=== PATIENT | male | born 1945 | race Caucasian/White ===

== ENCOUNTER 2016-11-01 14:55 | Emergency (ER) | payer MEDICARE | END 2016-11-01 18:17 | disposition home or self-care (01) | LOC: D.ER 14:55 | DX: S92.001A Unspecified fracture of right calcaneus, initial encounter for closed fracture (principal); X58.XXXA Exposure to other specified factors, initial encounter; Y93.9 Activity, unspecified; Y92.019 Unspecified place in single-family (private) house as the place of occurrence of the external cause; I10 Essential (primary) hypertension; K21.9 Gastro-esophageal reflux disease without esophagitis ==

== ENCOUNTER → 2016-11-05 13:30 | Outpatient (CLI) | payer MEDICARE | END | disposition home or self-care (01) | LOC: D.CT 13:30 | DX: S92.012A Displaced fracture of body of left calcaneus, initial encounter for closed fracture (principal); X58.XXXA Exposure to other specified factors, initial encounter; Y93.89 Activity, other specified; Y92.89 Other specified places as the place of occurrence of the external cause ==

== ENCOUNTER 2019-03-26 20:48 | Inpatient (IN) | payer MEDICARE ==
[~2019-03-26] VITALS: Ht 172.7 cm; Wt 89.5 kg
--- NOTE | ~2019-03-26 | DS ---
PATIENT:YOVANNY HUNTER :45 MEDICAL RECORD: [id number] DISCHARGE SUMMARY ADMISSION DATE: 03/27/19 DISCHARGE DATE: 03/28/19 DATE OF DISCHARGE: 03/28/2019 DIAGNOSES: 1. Ventricular tachycardia. 2. Unstable angina. 3. Coronary artery disease. 4. Percutaneous transluminal coronary angioplasty left main and left circumflex this admission. 5. Hypertension. HOSPITAL COURSE: This is a gentleman who is followed by the [place], who presents with chest pain and ventricular tachycardia, underwent cardiac catheterization revealing significant stenosis of a non-grafted circumflex and left main, underwent PTCA stent of both territories, was placed on Cordarone, had no further episodes of ventricular tachycardia or any other dysrhythmia. Will be discharged home with the addition of Cordarone and Plavix to his medical regimen. Follow up with [facility]. TRANSINT:[id number] Voice Confirmation ID: [id number] DOCUMENT ID: [id number] ARELIS WALTERS MD CC: [id number] DICTATION DATE: 03/28/19 1101 SALES AND MARKETING MANAGER: 03/29/19 0103 DIS IN 03/28/19 [facility] [address] [place] [address]
--- NOTE | ~2019-03-26 | HEMODYNAMI ---
PATIENT:YOVANNY HUNTER MEDICAL RECORD: [id number] : 45 LOCATION:[facility] D.2120 ADMISSION DATE: 03/27/19 Generatedon:03/27/201910:35 Patient name: YOVANNY HUNTER Patient #: [id number] SSN: D OB: 1945 Date of study: 03/27/2019 Page: Of Hemodynamic Procedure Report Patient Data Patient Demographics Procedure consent was obtained First Name: YOVANNY Gender: Male Last Name: ELSA : 1945 Middle Initial: CODY Age: 73 year(s) Patient #: [id number] Race: Unknown Additional ID: [id number] Contact details Address: [address] [place] [address] State: [place] City: [place] Zip code: [address] Past Medical History History of disease Date Diagnosis Comments CAD Allergies: No known allergies Admission Admission Data Admission Date: 03/27/2019 Admission Time: 9:50 Room #: D.2120 Height (in.): 67.72 BSA: 1.84 (m2) Height (cm.): 172 BMI: 24 (kg/m2) Weight (lbs.): 156.53 Weight (kg.): 71 Lab Results Lab Result Date: 03/27/2019 Lab Result Time: 0:00 Biochemistry Name Units Result Min Max BUN mg/dl 11 --(-*--)-- 7 18 Creatinine mg/dl 1.1 --(--*-)-- 0.6 1.3 eGFR ml/min 70.19312 *-(----)-- 90 120 NONAFRICAN CBC Name Units Result Min Max Hematocrit % 43.1 --(*---)-- 42 54 Hemoglobin g/dl 14.8 --(-*--)-- 13.5 17.5 Procedure Procedure Types Cath Procedure Diagnostic Procedure C LHC w/Coronaries w/Grafts FFR/IVUS FFR Initial Sedation Charges Moderate Sedation up to 30 minutes PCI Procedure Coronary Stent Coronary Stent Initial x2 Hemochron ACT Test Procedure Description Procedure Date Procedure Date: 03/27/2019 Procedure Start Time: 10:00 Procedure End Time: 10:31 Procedure Staff Name Function Vega Coe MD Performing Physician Ailyn Isbell RT Monitor Татьяна Tobias RT Scrub Heather Gagnon RN Nurse Indication Elevated troponin Procedure Data Cath Procedure Fluoroscopy Diagnostic fluoroscopy Total fluoroscopy Time: 8.7 time: 8.7 min min Diagnostic fluoroscopy Total fluoroscopy dose: dose: 1189 mGy 1189 mGy Contrast Material Contrast Material Type Amount (ml) Isovue 300 145 Entry Location Entry Primary Successful Side Size Upsize Upsize Entry Closure Succes sful Closure Location (Fr) 1 (Fr) 2 (Fr) Remarks Device Remarks Femoral Right 5 Fr 6 Fr Exoseal artery Short Estimated blood loss: 10 ml Diagnostic catheters Device Type Used For End Catheter Placement MULTIPACK Pigtail 5 Fr Procedure catheter MULTIPACK JL 4.0 5Fr Procedure catheter DIAGNOSTIC JL 5 5Fr Procedure catheter ([id number]) MULTIPACK 3DRC 5Fr Procedure catheter DIAGNOSTIC AR2 MOD 5 Fr Procedure catheter ([id number]) Procedure Complications No complications Procedure Medications Medication Administration Route Dosage Oxygen 8 l/min Lidocaine 2% added to field 20 Heparin Flush Bag added to field 2 bags (1000units/500ml NS) 0.9% NaCl I.V. 100 ml/hr Versed I.V. 2 mg Fentanyl I.V. 100 mcg Versed I.V. 1 mg Fentanyl I.V. 50 mcg Heparin Bolus I.V. 4000 units Integrilin (Bolus I.V. 6.2 ml 2mg/ml) Hemodynamics Rest BSA: 1.84 (m2) HGB: 14.8 (g/dl) O2 Consumption: Estimated: 209.97 (ml/min) O2 Co nsumption indexed: Estimated:114.11 (ml/min/m) Heart Rate: 67 (bpm) Snapshots Pre Cath Intra NCS Post Cath Vital Signs Time Heart Resp SPO2 etCO2 NIBP (mmHg) Rhythm Pain Sedation Rate (ipm) (%) (mmHg) Status Level (bpm) 9:40:30 65 16 98 0 165/96(142) NSR 0 (11) 10(A) , No pain 9:44:48 65 15 97 0 153/90(130) NSR 0 (11) 10(A) , No pain 9:49:04 66 16 97 0 152/91(126) NSR 0 (11) 10(A) , No pain 9:53:18 67 14 96 0 145/89(122) NSR 0 (11) 10(A) , No pain 9:57:32 66 23 96 0 150/96(126) NSR 0 (11) 10(A) , No pain 10:01:48 68 15 97 0 148/87(125) NSR 0 (11) 10(A) , No pain 10:06:04 75 30 96 0 149/101(114) NSR 0 (11) 9(A) , No pain 10:10:21 74 13 96 0 152/99(125) NSR 0 (11) 9(A) , No pain 10:14:35 77 21 96 0 145/94(121) NSR 0 (11) 9(A) , No pain 10:18:48 80 17 97 0 137/90(110) NSR 0 (11) 9(A) , No pain 10:23:00 75 15 96 0 142/87(113) NSR 0 (11) 9(A) , No pain 10:27:14 71 15 94 0 146/87(118) NSR 0 (11) 9(A) , No pain 10:31:28 70 17 98 0 140/86(116) NSR 0 (11) 10(A) , No pain Medications Time Medication Route Dose Verified Delivered Reason Notes Effectiveness by by 9:49:54 Oxygen simple 8 Vega Buffie used for pt wea rs mask. l/min Carolin Gagnon RN procedure cpap at night 9:50:30 Lidocaine 2% added 20ml Vega Vega for local pt wea rs to vial Carolin Coe MD anesthetic cpap at field night 9:50:37 Heparin Flush added 2 Vega Vega used for pt wea rs Bag to bags Carolin Coe MD procedure cpap at (1000units/500ml field night NS) 9:50:47 0.9% NaCl I.V. 100 Vegaron Winnie Per physician pt wea rs ml/hr Carolin Gagnon RN cpap at night 10:00:33 Versed I.V. 2 mg Vega Romero for sedation Carolin Gagnon RN 10:00:38 Fentanyl I.V. 100 Vega Buffie for sedation mcg Carolin Gagnon RN 10:11:39 Versed I.V. 1 mg Vega Romero for sedation Carolin Gagnon RN 10:11:43 Fentanyl I.V. 50 Vega Winnie for sedation mcg Carolin Gagnon RN 10:16:45 Heparin Bolus I.V. 4000 Vega Romero for verifi ed units Carolin Gagnon RN anticoagulation with dr coe 10:20:03 Integrilin I.V. 6.2 Vega Buffie Per physician wasted (Bolus 2mg/ml) ml Carolin Gagnon RN 3.8 ml of vial Procedure Log Time Note 8:59:33 Informed consent obtained and on chart 9:01:17 Procedure Status Urgent Heart Cath (IP). 9:01:18 Time tracking: Regular hours (M-F 7:00 - 5:00) 9:01:21 Plan of Care:Hemodynamics will remain stable., Cardiac rhythm will remain stable., Comfort level will be maintained., Respiratory function will remain adequate., Patient/ family verbilizes understanding of procedure., Procedure tolerated without complication., Recovers from procedure without complications.. 9:03:14 Patient allergic to No known allergies 9:03:44 Lab Result : BUN 11 mg/dl 9:03:44 Lab Result : Creatinine 1.1 mg/dl 9:03:44 Lab Result : eGFR NONAFRICAN 70.30618 ml/min 9:03:44 Lab Result : Hemoglobin 14.8 g/dl 9:03:44 Lab Result : Hematocrit 43.1 % 9:06:27 Patient Weight : 156.53 lbs 9:06:29 Patient Height : 67.72 inches 9:10:34 Indication : Elevated troponin 9:10:48 Stress Test: no; N/A NSTEMI 9:10:54 Risk of Mortality: .3 9:10:57 Risk of blood transfusion: .8 9:11:01 Risk of CANDY: 2.4 9:20:59 H&P Date Dictated: 03/27/2019 Within 30 days and on chart.. 9:22:25 Ailyn Isbell RT(R) sent for patient. Start room use. 9:29:55 Patient received from Med II to CCL 1 Alert and oriented. Tansferred to table in Supine position. 9:29:57 Warm blankets applied, and elizabeth hugger turned on for patient comfort. 9:29:58 Correct patient and procedure confirmed by team. 9:29:58 ECG and BP/O2 sat monitors applied to patient. 9:39:18 Vital chart was started 9:39:19 Baseline sample Acquired. 9:39:21 Rhythm: sinus rhythm 9:39:22 Full Disclosure recording started 9:39:23 Pre-procedure instructions explained to patient. 9:39:23 Pre-op teaching completed and patient verbalized understanding. 9:39:24 Family unavailable. 9:39:25 Patient NPO since Midnight. 9:39:27 Is the patient allergic to Iodine/contrast media? No. 9:39:28 Is patient on blood thinner?Yes 9:39:48 GIVEN 600MG OF PLAVIX 9:39:49 Patient diabetic? No. 9:39:53 Previous problem with sedation/anesthesia? No ? 9:39:54 Snore? Yes 9:39:56 Sleep apnea? Yes 9:39:57 Deviated septum? No 9:39:59 Opens mouth fully? Yes 9:40:01 Sticks out tongue? Yes 9:40:02 Airway obstruction? No ? 9:40:05 Dentures? No ? 9:40:08 Pre procedure: right dorsailis pedis pulse 1+ Palpable, but thready & weak; easily obliterated 9:40:13 Patient pain scale 0/10 ?. 9:40:18 IV patent on arrival in right antecubital with 0.9% NaCl at KVO. 9:40:21 Lab results completed and on chart. 9:40:24 Right groin area was prepped with chlora-prep and draped in sterile fashion 9:40:26 Alarms reviewed by R. N. 9:40:26 Sharps counted by scrub and verified by R.N. 9:42:16 Use device set Femoral Dx 9:42:17 ACIST Syringe (69750) opened to sterile field. 9:42:17 Bag Decanter () opened to sterile field. 9:42:18 ACIST Hand Control (41869) opened to sterile field. 9:42:19 ACIST Manifold (24829) opened to sterile field. 9:42:21 Tegaderm 4 x 4 (1626W) opened to sterile field. 9:42:22 Medline Cath Pack ([id number]) opened to sterile field. 9:42:23 DIAGNOSTIC Multipack 5Fr catheter set ([id number]) opened to sterile field. 9:42:24 SHEATH 5FR [place] (TEB149) opened to sterile field. 9:42:24 EMERALD Guide Wire (161-122) opened to sterile field. 9:49:54 Oxygen 8 l/min simple mask. was administered by Heather Gagnon RN; used for procedure; pt wears cpap at night Verbal order read back and verified. 9:50:30 Lidocaine 2% 20ml vial added to field was administered by Vega Coe MD; for local anesthetic; pt wears cpap at night Verbal order read back and verified. 9:50:37 Heparin Flush Bag (1000units/500ml NS) 2 bags added to field was administered by Vega Coe MD; used for procedure; pt wears cpap at night Verbal order read back and verified. 9:50:47 0.9% NaCl 100 ml/hr I.V. was administered by Heather Gagnon RN; Per physician; pt wears cpap at night Verbal order read back and verified. 9:54:13 Zero performed for pressure channel P1 9:58:09 --------ALL STOP TIME OUT------ 9:58:09 Final Timeout: patient, procedure, and site verified with staff and physician. All members of the team are in agreement. 9:58:11 Right groin site verified by team. 9:58:13 Fire Safety Assessment: A--An alcohol-based skin anteseptic being used preoperatively., C--Open oxygen or nitrous oxide is being used., D--An ESU, laser, or fiber-optic light is being used. 9:58:16 Physical assessment completed. ASA score P 2 - A patient with mild systemic disease as per Vega Coe MD. 9:58:20 2) 60-89 Mildly reduced kidney function, and other findings (as for stage 1) point to kidney disease. 9:58:23 Maximum allowable contrast dose (3.7 X eGFR X 0.75)194 ml. 9:58:26 Sedation plan: IV Moderate Sedation Medication:Versed, Fentanyl 10:00:33 Versed 2 mg I.V. was administered by Heather Gagnon RN; for sedation; Verbal order read back and verified. 10:00:38 Fentanyl 100 mcg I.V. was administered by Heather Gagnon RN; for sedation; Verbal order read back and verified. 10:00:41 Procedure started. 10:00:46 Local anesthetic to right femoral artery with Lidocaine 2% by Vega Coe MD.INITIAL ACCESS ONLY 10:01:36 A 5 Fr sheath was inserted into the Right Femoral artery 10:01:57 A MULTIPACK Pigtail 5 Fr catheter was advanced over the wire and used for Procedure. 10:02:11 LV gram done using IZQUIERDO 10:02:13 Injector settings: Ml/sec: 10, Volume: 20, 10:02:19 EF : 30 % 10:02:34 Catheter removed. 10:02:46 A MULTIPACK JL 4.0 5Fr catheter was advanced over the wire and used for Procedure. 10:03:30 Catheter removed. 10:03:35 GLIDE WIRE ANGLE 260cm (RA4830) opened to sterile field. 10:03:37 UNABLE TO ENGAGE LCA 10:03:51 UPGRADING TO 6FR SHEATH. FOR A GUIDE 10:03:57 SHEATH 6FR [place]ner (RBV277) opened to sterile field. 10:04:06 Sheath upsized to a 6 Fr Short. 10:04:18 GUIDE 6FR XBLAD 4.0 catheter ([id number]) opened to sterile field. 10:05:09 6 Fr XBLAD 4 guide catheter was inserted over the wire 10:05:35 Guide Catheter removed. unable to cannulate vessel. 10:05:48 A DIAGNOSTIC JL 5 5Fr catheter (405886R) was advanced over the wire and used for Procedure. 10:07:18 LCA angiography performed. 10:07:20 Catheter removed. 10:07:48 A MULTIPACK 3DRC 5Fr catheter was advanced over the wire and used for Procedure. 10:09:04 ASHLEY to LAD angiography performed. 10:11:33 RCA angiography performed. 10:11:39 Versed 1 mg I.V. was administered by Heather Gagnon RN; for sedation; Verbal order read back and verified. 10:11:43 Fentanyl 50 mcg I.V. was administered by Heather Gagnon RN; for sedation; Verbal order read back and verified. 10:11:46 Catheter removed. 10:11:52 A DIAGNOSTIC AR2 MOD 5 Fr catheter (064104N) was advanced over the wire and used for Procedure. 10:12:56 SVG to RCA angiography performed. 10:12:57 Catheter exchanged over wire. 10:13:00 Proceeding to intervention. 10:13:13 GUIDE 6FR JL 5.0 catheter (PU2XW64) opened to sterile field. 10:13:43 INFLATOR Merit BasixCompak (PE3134) opened to sterile field. 10:13:43 CHOICE PT Extra Support 182cm wire ([id number]) opened to sterile field. 10:13:44 [place] Verrata Plus pressure wire (64559Y) opened to sterile field. 10:14:48 6 Fr JL 5 guide catheter was inserted over the wire 10:15:51 FFR/IFR wire advanced. 10:16:45 Heparin Bolus 4000 units I.V. was administered by Heather Gagnon RN; for anticoagulation; verified with dr coe Verbal order read back and verified. 10:17:27 Wire advanced across lesion. 10:17:53 LMCA lesion measured at .87 with IFR 10:18:34 Pre PCI Site: [place] LMCA has 70% stenosis. 10:18:43 Pre PCI Site: [place] mCirc has 90% stenosis. 10:18:59 IFR WIRE REMOVED 10:19:05 CHOICE ES 182 wire advanced. 10:19:33 CHOICE ES 182 ADVNACED ACROSS THE CIRC 10:20:03 Integrilin (Bolus 2mg/ml) 6.2 ml I.V. was administered by Heather Gagnon RN; Per physician; wasted 3.8 ml of vial Verbal order read back and verified. 10:20:36 Inflate balloon Inflation number: 1 A EUPHORA 3.5 x 15 Balloon ([id number]) was prepped and advanced across the Prox CX , then inflated to 13 DAI for 0:00 (min:sec) . 10:21:12 Balloon removed over the wire. 10:22:27 Place stent Inflation Number: 2 A KAT RX 3.0 x 08 stent ([id number]) was prepped and advanced across the Prox CX . The stent was deployed at 19 DAI for 0:00 (min:sec) . 10:22:32 Stent catheter was removed intact over wire. 10:23:56 Place stent Inflation Number: 1 A KAT RX 3.5 x 12 stent ([id number]) was prepped and advanced across the LMCA . The stent was deployed at 17 DAI for 0:00 (min:sec) . 10:24:13 Stent catheter was removed intact over wire. 10:24:14 Wire removed. 10:24:15 Guide catheter removed. 10:24:48 EXOSEAL 6Fr (EX600) opened to sterile field. 10:25:07 Sheath removed intact; hemostasis achieved with Exoseal to the Right Femoral artery. 10::44 Procedure ended.(Physican Out) 10:27:22 Fluoroscopy time 08.70 minutes. 10::25 Fluoroscopy dose: 1189 mGy 10::25 Flurop Dose total: 1189 10::43 Dose Area Product 09489 mGy/cm. 10::08 Contrast amount:Isovue 300 145ml. 10:28:12 Maximum allowable dose exceeded? No. 10:28:14 Sharps counted by scrub and verified by R.N. 10:28:17 Post-op/insertion site Right Femoral artery dressed using a 4 x 4 and Tegaderm. 10:28:23 Post-procedure physical assessment completed. ASA score P 2 - A patient with mild systemic disease as per Vega Coe MD. 10:28:31 Post procedure rhythm: sinus rhythm 10::34 Estimated blood loss: 10 ml 10::57 Post procedure instruction explained to patient.Patient verbalizes understanding. 10:28:57 Patient needs reinforcement of post procedure teaching. 10:29:23 Procedure type changed to Cath procedure, Diagnostic procedure, C, C w/Coronaries w/Grafts, FFR/IVUS, FFR Initial, Sedation Charges, Moderate Sedation up to 30 minutes, PCI procedure, Coronary Stent, Coronary Stent Initial x2, Hemochron ACT Test 10:30:42 Procedure and supply charges have been captured, reviewed, submitted and are correct. 10:30:50 Procedure Complication : No complications 10::10 Vital chart was stopped 10::12 [facility] Findings: MVD- PCI performed (see procedure note) 10:31:16 Operative report dictated upon procedure completion. 10:31:16 See physician's report for complete and final results. 10:31:18 Report given to [facility]. 10:31:20 Patient transfered to [facility] with Bed. 10:31:23 Procedure ended. 10:31:23 Full Disclosure recording stopped 10:31:30 ACC-PCI Only Patient was given prescriptions, or instructed by Vgea Coe MD to start/continue the following medications upon discharge: Plavix 10::31 End room use (Document Last) 10:32:24 ACT drawn and resulted at 220 seconds. (normal therapeutic range 180-240 seconds). 10:34:12 End room use (Document Last) 10:34:38 End room use (Document Last) Intervention Summary Intervention Notes Time ActionType Lesion and Equipment Used Action# Pressure Duration Attributes 10:20:36 Inflate Prox CX EUPHORA 3.5 x 1 13 00:00 balloon 15 Balloon ([id number]) 10:22:27 Place stent Prox CX KAT RX 3.0 x 2 19 00:00 08 stent ([id number]) 10:23:56 Place stent LMCA KAT RX 3.5 x 1 17 00:00 12 stent ([id number]) Device Usage Item Name Manufacture Quantity Catalog Number Hospital Part Current Minimal Lot# / Charge Number Stock Stock Serial# Code ACIST Syringe Acist 1 87768 875763 957574 876808 20 (07155) Medical Systems Inc Bag Decanter Microtek 1 2001S 884225 30585 894357 5 (2002S) Medical Inc. ACIST Hand Acist 1 26632 693985 881902 613831 5 Control Medical (62371) Systems Inc ACIST Manifold Acist 1 57592 487827 655488 007005 5 (15703) Medical Systems Inc Tegaderm 4 x 4 3M 1 1626W 708673 591176 247248 5 (1626W) Medline Cath Medline 1 [id number] 752755 84793 547383 5 Pack ([id number]) DIAGNOSTIC Cardinal 1 EK3576 912211 25798 992789 30 Multipack 5Fr Health catheter set (HD4386) SHEATH 5FR Terumo 1 LNA536 935089 944467 993907 5 [place]ner (EXA420) EMERALD Guide Cardinal 1 502-455 558500 452244 270069 5 Wire (502-455) Health MULTIPACK Cardinal 1 856456 5 Pigtail 5 Fr Health catheter MULTIPACK JL Cardinal 1 647679 5 4.0 5Fr Health catheter SHEATH 6FR Terumo 1 OKD355 621423 247415 720252 40 [place]ner (FJX880) GUIDE 6FR Cardinal 1 14756695 135081 266397 413153 3 XBLAD 4.0 Health catheter (55506360) DIAGNOSTIC JL Cardinal 1 135688S 140001 494228 525072 5 5 5Fr catheter Health (607859T) MULTIPACK 3DRC Cardinal 1 824920 5 5Fr catheter Health DIAGNOSTIC AR2 Cardinal 1 327884X 367111 476150 994489 20 MOD 5 Fr Health catheter (315440G) GUIDE 6FR JL Medtronic 1 [id number] 608010 77404 263607 1 5.0 catheter (YQ4UT79) INFLATOR Merit Merit 1 KG8413 622214 399830 209881 15 BriteHubmtCinemacraft (JT4183) CHOICE PT [place] 1 [id number] 691001 360945 372500 5 Extra Support Scientific 182cm wire (2221438Y9) [place]mont [place] 1 97907N 839067 487418480 588739 5 Verrata Plus pressure wire (41904D) GLIDE WIRE Terumo 1 TA4541 776242 096004 030506 5 ANGLE 260cm (FK1672) EUPHORA 3.5 x Medtronic 1 [id number] 878042 045817 578861 5 [id number] 15 Balloon (DOY2249G) KAT RX 3.0 x Medtronic 1 [id number] 023569 1920938 859760 5 [id number] 08 stent ([id number]) KAT RX 3.5 x Medtronic 1 [id number] 406425 5913442 296091 5 [id number] 12 stent ([id number]) EXOSEAL 6Fr Cardinal 1 EX600 352538 193380 241414 10 (EX600) Health Signature Audit Rock Stage Time Signature Unsigned Intra-Procedure 03/27/2019 Ailyn Isbell 10:34:12 AM RT(R) Intra-Procedure 03/27/2019 Heather Gagnon RN 10:34:38 AM Intra-Procedure 03/27/2019 Vega Coe 10:35:18 AM [place] [id number] [place] [address]
--- NOTE | ~2019-03-26 | OP ---
PATIENT NAME: YOVANNY HUNTER MEDICAL RECORD: [id number] :45 LOCATION:D.M2 D.0 ADMISSION DATE:03/27/19 SURGEON: ARELIS WALTERS MD DATE OF OPERATION: 03/27/2019 DATE OF SERVICE: 03/27/2019 PROCEDURES: 1. PTCA stent left main. 2. PTCA stent left circumflex. 3. IFR. 4. Left heart catheterization. 5. Selective coronary angiography. 6. Left ventriculogram. 7. ASHLEY angiography. 8. Vein graft angiography. INDICATION: Myocardial infarction, ventricular tachycardia. PROCEDURE IN DETAIL: After informed consent was obtained and after a detailed explanation of risks, benefits as well as alternative therapies, the patient elected to proceed with angiogram and angioplasty. The right femoral area was prepped and draped in normal sterile fashion. Right femoral artery was cannulated via modified Seldinger technique with placement of 6-Cook Islander sheath. All catheters exchanged through this sheath. FINDINGS: Left ventriculogram was performed in standard 30-degree IZQUIERDO view, reveals global hypokinesis throughout all segments. Overall ejection fraction is 30%. SELECTIVE CORONARY ANGIOGRAPHY: 1. Left main is 70% stenosed and IFR was abnormal at 0.87. 2. Left anterior descending has a long 80% stenosis in the mid vessel. 3. ASHLEY to the LAD is widely patent. 4. Left circumflex has 90% stenosis at its ostium. 5. The right coronary is totally occluded. 6. Vein graft to the right coronary is widely patent. Distal right coronary is widely patent. PTCA STENT OF THE LEFT MAIN AND LEFT CIRCUMFLEX: The circumflex was addressed with a 3.0 x 8 mm [place] and the left main with a 3.5 x 12 mm Ernesto. Result was 0% residual stenosis. OVERALL IMPRESSION: Successful percutaneous transluminal coronary angioplasty stent of left main and left circumflex going from 70% to 90% initial stenosis to 0% residual. TRANSINT:[id number] Voice Confirmation ID: [id number] DOCUMENT ID: [id number] OPERATIVE REPORT [id number] YOVANNY HUNTER ARELIS WALTERS MD CC: [id number] DICTATION DATE: 03/27/19 1032 DIAL BRUSHER: 03/27/19 1640 ADM IN [place] [id number] [place] [address]
--- NOTE | ~2019-03-26 | EC ---
PATIENT:YOVANNY HUNTER DATE OF SERVICE: 03/27/19 SEX: M MEDICAL RECORD: [id number] DATE OF : 45 LOCATION:D.M2 D.212 AGE OF PATIENT: 73 ADMISSION DATE: 03/27/19 REFERRING PHYSICIAN: INTERPRETING PHYSICIAN: ARELIS COE MD ECHOCARDIOGRAM REPORT ECHO CHARGES 4 ECHO COMPLETE Date: 03/27/19 CLINICAL DIAGNOSIS: [place] ECHOCARDIOGRAPHIC MEASUREMENTS (adult normal given) AC root (d.<3.7cm) 3.6 cm LV Septum d (<1.2 cm> 1.1 cm Valve Excursion 2.4 cm LV Septum (systole) 1.6 cm Left Atria (s.<4.0cm> 4.2 cm LVPW d(<1.2cm) 0.7 cm RV (d.<2.3cm) 3.1 cm LVPW (sytole) 1.3 cm LV diastole(<5.6CM) 6.9 cm MV E-F(>70mm/sec) cm LV systole 5.2 cm LVOT Diameter 2.1 cm MV exc.(>10mm) cm Est.ejection fraction (50-75%) % DOPPLER: LVIT cm/sec A 63 cm/sec E 51 cm/sec LA cm/sec RVSP 33.2 mmHg LVOT 62 cm/sec AOP1/2T m/s Asc. Ao 120 cm/sec RVOT 58 cm/sec RA cm/sec PA 85 cm/sec AV Gradient Peak 5.7 mmHg AV Mean 3.3 mmHg AV Area 1.7 cm MV Gradient Peak 2.9 mmHg MV Mean 1.1 mmHg MV Area cm COMMENTS: Lace Winder: [facility] Director Quality Systems: 1 Dr. Coe TAPE# PACS Pericardial Effusion Y DATE OF SERVICE: FINDINGS: 1. Left ventricular chamber size is mildly dilated. Left ventricular systolic function is preserved at 55%. 2. Left atrium is enlarged at 4.2 cm. Right atrium and right ventricular chamber sizes are as well mildly dilated. 3. Valvular structures have normal structure and motion. 4. Doppler interrogation reveals mild mitral regurgitation, mild tricuspid regurgitation, no other valvular insufficiency or stenosis. Pulmonary systolic ECHOCARDIOGRAM REPORT [id number] YOVANNY HUNTER pressure estimated 33 mmHg. 5. No evidence of pericardial effusion or left ventricular thrombus. TRANSINT:[id number] Voice Confirmation ID: [id number] DOCUMENT ID: [id number] ARELIS COE MD CC: [id number] DICTATION DATE: 03/27/19 1606 NATIONAL EXPANSION RECRUITER: 03/27/19 2344 ADM IN [place] [id number] [place] [id number]
[2019-03-26] MEDS ORDERED: BAYER CHEWABLE81 MG PO (21:03)
[2019-03-26] MEDS ORDERED: VIAGRA (21:04)
[2019-03-26] MEDS ORDERED: OMEPRAZOLE PO (21:04)
[2019-03-26] MEDS ORDERED: LISINOPRIL PO (21:04)
[2019-03-26] MEDS ORDERED: GABAPENTIN PO (21:04)
[2019-03-26] MEDS ORDERED: METOPROLOL TART50 MG PO (21:04)
[2019-03-26] MEDS ORDERED: MAGNESIUM OXIDE PO (21:05)
[2019-03-26 21:28] LABS: BASOPHILS 0.4 % (0-2); EOSINOPHILS 0.6 % (0-7); HEMATOCRIT 43.1 % (42.0-54.0); HEMOGLOBIN 14.8 g/dL (13.5-17.5); IMMATURE GRANULOCYTES 0.6 % (0-5); LYMPHOCYTES 18.2 % (15-50); MCH 32.2 pg (26.0-34.0); MCHC 34.3 g/dL (31.0-37.0); MCV 93.9 fL (80.0-100.0); MEAN PLATELET VOLUME 9.1 fL (7.4-10.4); MONOCYTES 8.8 % (2-11); NEUTROPHILS 71.4 % (40-80); PLATELET COUNT 135 10x3/uL (130-400); RBC 4.59 10x6/uL (4.20-6.10); RDW 13.3 % (11.5-14.5); WBC 5.4 10x3/uL (4.8-10.8)
[2019-03-26 21:43] LABS: APTT 24.9 SECONDS (22.8-39.4); INR 0.99 (0.85-1.17); PROTIME 13.1 SECONDS (11.6-15.0)
[2019-03-26 21:44] LABS: CALC OSMOLALITY 278 mosm/kg (275-300); CALCIUM 8.5 mg/dL (8.5-10.1); CARBON DIOXIDE 25.1 mmol/L (21.0-32.0); CHLORIDE - SERUM 105 mmol/L (98-107); CREATININE - SERUM 1.1 mg/dL (0.6-1.3); GLUCOSE 127 mg/dL (74-106); POTASSIUM - SERUM 3.8 mmol/L (3.5-5.1); SODIUM 139 mmol/L (136-145); UREA NITROGEN 11 mg/dL (7-18); eGFR NON AFRICAN AMERICAN 70 mL/min (90-120)
[2019-03-26 22:03] VITALS: BP 115/72
[2019-03-26 22:05] LABS: ALBUMIN 3.5 g/dL (3.4-5.0); ALKALINE PHOSPHATASE 97 U/L (30-120); ALT (SGPT) 48 U/L (10-68); BILIRUBIN - TOTAL 0.73 mg/dL (0.2-1.3); CKMB 13.7 U/L (0.0-3.6); CREATINE KINASE 192 UL (21-232); MAGNESIUM - SERUM 1.6 mg/dL (1.8-2.4); T4 THYROXIN - FREE 1.03 ng/dL (0.76-1.46); T4 THYROXINE 6.8 ug/dL (4.7-13.3); THYROID STIMULATING HORMONE 2.52 uIU/mL (0.36-3.74)
[2019-03-26 22:06] LABS: TROPONIN-I 1.698 ng/mL (0.000-0.060)
--- NOTE | 2019-03-26 22:22 | NUR ---
PT REPORTS TAKING 81 MG ASA EARLIER TODAY. ADVISED EDP.
--- NOTE | 2019-03-26 22:45 | NUR ---
ARRIVED VIA WC AMBLITORY TO BED LOW AND LOCKED NO DISTRESS OR CP CALL LIGHT PROVIDED
[2019-03-27 00:45] VITALS: BP 123/64; BP 153/84; BMI 23.9
[2019-03-27 03:10] LABS: CKMB 29.9 U/L (0.0-3.6)
[2019-03-27 03:12] LABS: CREATINE KINASE 262 UL (21-232); TROPONIN-I 5.893 ng/mL (0.000-0.060)
[2019-03-27 04:48] VITALS: BP 132/80
--- NOTE | 2019-03-27 07:49 | NUR ---
REPORT RECEIVED. WILL CONTINUE WITH POC. PT CURRENTLY LYING SUPINE. CALL LIGHT W/I REACH. PT IS AAO AND UP AD DARYL. RR EVEN AND UNLABORED ON 2L 02. R.AC PIV SALINE LOCKED. WILL CTM.
[2019-03-27 08:21] LABS: CKMB 22.7 U/L (0.0-3.6); CREATINE KINASE 235 UL (21-232)
[2019-03-27 08:45] VITALS: Ht 172.7 cm; Wt 89.5 kg
--- NOTE | 2019-03-27 09:16 | NUR ---
CONSENTS SIGNED. PREOP MEDICATIONS ADMININSTERED PER DIRECTOR OF SCIENTIFIC RESEARCH REQUEST. NS INFUSING @[facility]. WILL CTM.
[2019-03-27 09:18] VITALS: BP 154/82
--- NOTE | 2019-03-27 10:23 | HP ---
PATIENT: YOVANNY HUNTER MEDICAL RECORD: [id number] ACCOUNT: [id number] LOCATION:[address] : 45 ADMISSION DATE: 03/27/19 PCP: BRENT BLACKMON HISTORY AND PHYSICAL EXAMINATION DIAGNOSES: 1. Myocardial infarction. 2. Coronary artery disease. 3. Status post coronary artery bypass graft surgery. 4. Hypertension. 5. Hyperlipidemia. HISTORY OF PRESENT ILLNESS: This is a gentleman, who was having intercourse with his girlfriend, became very diaphoretic. No real overt chest pain. Troponin is approximately 7. He has a history of coronary artery disease, coronary artery bypass graft surgery 4 years ago, 2-vessel, at [place]. He had a myocardial infarction at age 57, as well with PTCA and stent. PHYSICAL EXAMINATION: CONSTITUTIONAL/GENERAL APPEARANCE: Well nourished, well developed, appears stated age. EYES: Lids and conjunctivae noninjected. No discharge. No pallor. ENT: Lips within normal limit. No cyanosis. No pallor. NECK: Carotid arteries, bilateral normal upstroke. No bruits. No thrills. No jugular venous pressure or distention. CERVICAL LYMPH NODES: Nontender. Nonenlarged. THYROID: Not enlarged. No nodules. CARDIOVASCULAR: Precordial exam, nondisplaced. No heaves or pericardial thrills. Rate and rhythm, regular. Heart sounds, normal S1, normal S2. No S3, no gallop, no rub. Systolic murmur, not heard. Diastolic murmur, not heard. RESPIRATORY: Respiratory effort, unlabored. Normal curvature. No thoracic deformity. No chest wall tenderness. Percussion, resonant. Auscultation, clear. No wheezes, no rales, no rhonchi. ABDOMEN: Soft, nondistended, nontender. No abdominal pain, no vomiting and normal appetite. MUSCULOSKELETAL: No joint tenderness, normal gait, normal tone. SKIN: Warm and dry. OVERALL IMPRESSION: Myocardial infarction. At this time, we will load him with Plavix and aspirin. Continue his blockade. Proceed with coronary angiography. TRANSINT:[id number] Voice Confirmation ID: [id number] DOCUMENT ID: [id number] ARELIS WALTERS MD at 1023 CC: [id number] DICTATION DATE: 03/27/1946 DRIVER SERVICE TECHNICIAN: 03/27/[address] [facility] [address] [facility], [facility]
--- NOTE | 2019-03-27 10:52 | NUR ---
PT RETURNED FROM ORGANISATION AND METHODS ANALYST. RIGHT FEMORAL CATH SITE IS C/D/I WITH NO S/S OF HEMATOMA PRESENT. VSS AND WNL. PT DENIES ANY NEEDS. NO S/S OF DISTRESS NOTED. NS INFUSING @100ML/HR VIA R.AC PIV. WILL CTM.
[2019-03-27 13:18] VITALS: BP 139/83
[2019-03-27 17:12] VITALS: BP 154/89
--- NOTE | 2019-03-27 20:10 | NUR ---
REPORT RECIEVED AND INITIAL ROUNDS COMPLETED. RIGHT GROIN INCISION SITE WITH DRESSING C/D/I. NO BRUISING OR SWELLING. SR PER TELEMETRY. SALINE LOCK TO RIGHT A/C. CPOC.
[2019-03-27 20:19] VITALS: BP 126/78
--- NOTE | 2019-03-27 20:43 | NUR ---
BEDTIME MED GIVEN. PT TEACHING ON AMIODARONE DOSE/PURPOSE. CPOC.
[2019-03-28 00:21] VITALS: BP 125/80
--- NOTE | 2019-03-28 03:37 | NUR ---
RESTING IN BED WITH NO DISTRESS. CPOC.
[2019-03-28 05:29] VITALS: BP 121/84
[2019-03-28 09:15] VITALS: BP 155/93
[2019-03-28 12:06] VITALS: BP 177/99
[2019-03-28] MEDS ORDERED: PLAVIX75 MG PO (12:26)
[2019-03-28] MEDS ORDERED: AMIODARONE HCL200 MG PO (12:26)
--- NOTE | 2019-03-28 13:03 | NUR ---
IV AND TELEMETRY DCD. DC PLANS GIVEN. UNDERSTANDING VOICED. ESCORTED TO CAR BY W/C.
== END 2019-03-28 13:04 | disposition home or self-care (01) | DRG 247 ==
LOC: D.ER 20:48 → D.M2 21:33 → OBSVTIME 21:33 → D.M2 21:33
PROVIDERS: Emergency Medicine; ADMIT Internal Medicine Interventional Cardiology; ATTEND Internal Medicine Interventional Cardiology
PROC: 4A033BC Measurement of Arterial Pressure, Coronary, Percutaneous Approach (ICD-10-PCS; 2019-03-27)
PROC: 4A023N7 Measurement of Cardiac Sampling and Pressure, Left Heart, Percutaneous Approach (ICD-10-PCS; 2019-03-27)
PROC: B2111ZZ Fluoroscopy of Multiple Coronary Arteries using Low Osmolar Contrast (ICD-10-PCS; 2019-03-27)
PROC: B2121ZZ Fluoroscopy of Single Coronary Artery Bypass Graft using Low Osmolar Contrast (ICD-10-PCS; 2019-03-27)
PROC: B2151ZZ Fluoroscopy of Left Heart using Low Osmolar Contrast (ICD-10-PCS; 2019-03-27)
PROC: 027135Z Dilation of Coronary Artery, Two Arteries with Two Drug-eluting Intraluminal Devices, Percutaneous Approach (ICD-10-PCS; principal; 2019-03-27 09:22)
PROC: B240ZZ3 Ultrasonography of Single Coronary Artery, Intravascular (ICD-10-PCS; 2019-03-27 09:22)
DX: I21.9 Acute myocardial infarction, unspecified (principal); I47.2 Ventricular tachycardia; I10 Essential (primary) hypertension; E78.5 Hyperlipidemia, unspecified; I25.110 Atherosclerotic heart disease of native coronary artery with unstable angina pectoris; I48.91 Unspecified atrial fibrillation